=== PATIENT | female | born 1950 | race Caucasian/White ===

== ENCOUNTER 2024-02-06 11:10 | Emergency (ER) | payer OTHER, SELFPAY ==
[2024-02-06 11:12] VITALS: BP 174/104
--- NOTE | 2024-02-06 11:51 | ED.GENMED ---
History of Present Illness
General
Chief Complaint: Blood Pressure Problem
Source: patient
Exam Limitations: none
Time Seen by Provider: 02/06/24 11:36
Travel History
Have you had any contact with someone who has COVID-19?: No
Do you have any symptoms of coronavirus? Fever > 100 degrees, chills, cough, shortness of breath, sore throat, loss of taste or smell, muscle aches, or headache?: No
History of Present Illness
History of Present Illness:
73-year-old female pack-a-day smoker with history of borderline diabetes and recently diagnosed hypertension presents with elevated blood pressure readings at home occasional chest and neck discomfort. She also notes a headache. The headache is
subtle and actually improving. It has been present for several weeks. She denies any dizziness. She was seen by her family doctor started on losartan recently, 3 days ago and was referred to cardiology. 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 She
has admitted to taking more than usual ibuprofen lately for discomfort in her legs. She also admits to smoking more than usual.
Phy Exam
Physical Exam
Physical Exam:
General: Well-appearing female no acute respiratory distress
HEENT: Normocephalic atraumatic no bruits noted neck is supple
Heart: Regular rate and rhythm no murmurs
Lungs: Clear to auscultation bilaterally no wheezing
Abdomen: Soft nontender nondistended no guarding or rebound normal bowel sounds
Extremities: No cyanosis or edema
Course
Orders/Labs/Results
Orders:
Orders
02/06/24 11:50
Electrocardiogram (*1) Urgent
Reason for Study: Chest Pain
EKG- Treatment ONCE
02/06/24 12:08
Complete Blood Count/With Diff Urgent
Comprehensive Metabolic Panel Urgent
Troponin I Urgent
Abnormal Lab Results
02/06/24
12:08
WBC 10.9 H 10^3/uL
(4.8-10.8)
MCH 32.5 H pg
(27.0-31.0)
Abs Immat Gran (auto) 0.1 H 10^3/uL
(0-0.05)
Absolute Neuts (auto) 7.1 H 10^3/uL
(1.4-6.5)
Absolute Monos (auto) 0.8 H 10^3/uL
(0.1-0.6)
Chloride 109 H mmol/L
(98-107)
Creatinine 0.5 L mg/dL
(0.6-1.0)
Glucose 126 H mg/dl
(70-99)
02/06/24 12:08
02/06/24 12:08
Vital Signs
Initial and Last Documented VS:
Initial Vital Signs
Temp Pulse Resp BP Pulse Ox
98.2 F 96 18 174/104 95
02/06/24 11:12 02/06/24 11:12 02/06/24 11:12 02/06/24 11:12 02/06/24 11:12
Last Documented Vital Signs
Temp Pulse Resp BP Pulse Ox
98.2 F 96 18 171/106 95
02/06/24 11:12 02/06/24 11:12 02/06/24 11:12 02/06/24 13:02 02/06/24 11:12
MDM/Problems Addressed
Differential Diagnosis Includes:
Elevated blood pressure readings neck discomfort and some chest discomfort as well. Blood pressure from 170/104. Check EKG troponin given the chest discomfort. Do not suspect ACS given relatively benign exam. She does have a history of anxiety.
Counseled her on cessation of smoking and importance of this.
*Critical Care Note
Total Time (30-74mins, 75-104mins- exclusive of procedures): Not Applicable
Update Note
Update Note:
Patient reexamined still nontoxic. Blood pressure rechecked 170s over low 100s. No complaints to offer upon reassessment. Labs reviewed troponin undetectable. Workup here otherwise unremarkable. Explained to her that it may take some time for
her losartan but she just started 2 days ago to kick in. 1 option would be doing 50 mg daily. She also notes she is very anxious and stressed. This may be weighing on her ankle and her elevated blood pressure. She is noticed an increase smoking
recently as well. Recommend she follow-up with her family doctor but stable for discharge
ED Attending Note
-
Portions of this chart may have been created with voice recognition software.� Occasional wrong word or��sound alike� substitutions may have occurred due to the inherent limitations of voice recognition software.
Discharge Plan
Departure
Patient Disposition: Home (Routine Discharge)
Date of Disposition: 02/06/24
Time of Disposition: 13:45
Patient with high blood pressure during this ER visit?: No
Discharge Problem:
Hypertension
Instructions: BLOOD PRESSURE
Referrals:
Christiano Mchugh, DO [Family Provider] -
Interventions
Interventions:
*Risk Screen - Suicide Last Done: 02/06/24 11:12
*General Assessment Last Done: 02/06/24 11:12
*Neglect/Abuse Screening Last Done: 02/06/24 11:12
ED- Fall Risk Assessment Last Done: 02/06/24 14:02
*ED COVID-19 Vaccine History Last Done: 02/06/24 11:12
*Nursing Disposition Last Done: 02/06/24 14:02
ED- Cardiac Assessment Last Done: 02/06/24 12:36
ED- Neurological Assessment Last Done: 02/06/24 12:36
ED- Pulmonary Assessment Last Done: 02/06/24 12:36
Discharge Date and Time
Discharge Date/Time: 02/06/24 14:03
Print Language: MONGOLIAN
[2024-02-06 12:23] LABS: % Basophils 0.5 % (0-2); % Eosinophils 2.1 % (0-6); % Immature Granulocytes 0.5 % (0-0.5); % Lymphocytes 24.7 % (20.5-51.1); % Monocytes 7.1 % (1.7-9.3); % Neutrophils 65.1 % (42.2-75.2); Absolute Basophils 0.1 10^3/uL (0-0.2); Absolute Eosinophils 0.2 10^3/uL (0-0.7); Absolute Immature Granulocytes 0.1 10^3/uL (0-0.05); Absolute Lymphocytes 2.7 10^3/uL (1.2-3.4); Absolute Monocytes 0.8 10^3/uL (0.1-0.6); Absolute Neutrophils 7.1 10^3/uL (1.4-6.5); Hematocrit 43.4 % (37.0-47.0); Hemoglobin 15.7 g/dL (12.0-16.0); Mean Corp Hgb Conc. 36.2 g/dL (33.0-37.0); Mean Corpuscular Hgb 32.5 pg (27.0-31.0); Mean Corpuscular Volume 89.9 fL (81.0-99.0); Mean Platelet Volume 9.9 fL (7.4-10.4); Nucleated Red Blood Cells % 0 %; Platelet Count 193 10^3/uL (130-400); Red Blood Cell Count 4.83 10^6/uL (4.20-5.40); Red Cell Dist. Width 13.3 % (11.5-14.5); White Blood Cell Count 10.9 10^3/uL (4.8-10.8)
[2024-02-06 12:34] LABS: ALT (SGPT) 25 U/L (0-35); AST (SGOT) 31 U/L (14-36); Albumin 4.5 g/dl (3.5-5.0); Alkaline Phosphatase 108 U/L (38-126); Blood Urea Nitrogen 14 mg/dl (7-17); Calcium 9.9 mg/dl (8.4-10.2); Carbon Dioxide 25 mmol/L (22-30); Chloride 109 mmol/L (98-107); Glucose 126 mg/dl (70-99); Potassium 4.1 mmol/L (3.5-5.1); Sodium 138 mmol/L (135-145); Total Bilirubin 0.7 mg/dl (0.2-1.3); Total Protein 7.4 g/dl (6.3-8.2); eGFR > 60.00
[2024-02-06 12:44] LABS: Troponin I < 0.012 ng/ml
[2024-02-06 13:02] VITALS: BP 171/106
== END 2024-02-06 14:03 | disposition home or self-care (01) ==
LOC: EMR 11:10
PROVIDERS: Physician Assistant; EMERGENCY PHYSICIAN Emergency Medicine; FAMILY PHYSICIAN Family Medicine
DX: I10 Essential (primary) hypertension (principal); R73.03 Prediabetes; F17.210 Nicotine dependence, cigarettes, uncomplicated
CPT/HCPCS: 99283; 80053; 84484; 85025; 93005